=== PATIENT | female | born 1975 | race Caucasian/White ===

== ENCOUNTER 2019-06-17 14:32 | Inpatient (IN) | payer BC, SELFPAY ==
[2019-06-17] VITALS (7 sets, daily range): BP systolic 90–113; BP diastolic 50–58; PULSE 92–122; RESP 18–24; TEMP 37–38.7; O2SAT 91–95; BMI 31.1; BMI 31.6; BMI 31.7
--- NOTE | 2019-06-17 14:55 | ED.DCSUM_ITS ---
- ER Visit Summary Date of Service: 06/17/19 Chief Complaint: Cough and fever History of Present Illness: The patient is a 43 F who presents with cough and fever that is been getting progressively worse over the past week. Patient states she did not take her temperature but she feels like she has a fever. Patient states she has been taking Tylenol Motrin which has been helping. Patient states she is coughing up some sputum but does not know the color of it. Patient also admits to a sore throat. Patient states that she had a recent rapid strep test performed which was negative. Patient admits to nausea but denies any vomiting. Patient admits to a headache but denies any paresthesias or weakness. Patient denies any neck pain or back pain. Physical Examination: Vital signs are stable except for tachycardia of 122 and a mild tachypnea of 20. Patient is afebrile here. Tympanic membranes are clear. Oral mucosa is pink and moist. Oropharynx is erythematous. There are no exudates noted. Neck is supple. Trachea is midline. There is no JVD. Heart was regular rate and rhythm. Lungs show bibasilar rhonchi. There is good respiratory effort. Abdomen is soft. Bowel sounds are normal. There is no tenderness. Extremities are intact. There is no calf tenderness or edema. Cranial nerves II through XII are intact. There are no focal motor or sensory deficits. Test Results: CBC and metabolic profile were within normal limits. Rapid flu and rapid strep were obtained and were negative. PA and lateral chest x-ray shows bilateral lower lobe infiltrates. These are interpreted by the radiologist and reviewed by myself. Emergency Department Course and Treatment: Patient was given IV fluids. Patient was given Tylenol. Patient remained febrile. Patient was started on Levaquin. Case was discussed with the hospitalist. She will be in to evaluate the patient. She requested that a respiratory panel be ordered. This was done. Patient understood and was agreeable with the plan. All questions were answered. Disposition: Admit to hospital Impression: Bilateral lower lobe pneumonia This note was generated with Ee[employer]ria dictation software. It may contain incorrect words, spelling, and punctuation that were not noted in review of the chart prior to signing ED Disposition - Plan for ED Patient: Disposition: Acute Care Hospital [facility] Diagnosis: Community acquired bilateral lower lobe pneumonia Referrals: Anthony Ragland MD [Primary Care Provider] -
[2019-06-17] MEDS: Acetaminophen 500 MG Tablet 1000 MG PO (15:14)
[2019-06-17] MEDS: 0.9% Normal Saline 1,000 ML 1000 ML IV (15:14)
--- NOTE | 2019-06-17 15:28 | RAD_ITS ---
STUDY: X-RAY CHEST REASON FOR EXAM: Female, 43 years old. sob fever and cough TECHNIQUE: PA and lateral views of the chest. COMPARISON: None. FINDINGS: Patchy parenchymal opacities involving the bilateral lower lobes and lingula. There is no demonstrated pleural abnormality. Normal size heart. Normal mediastinum and kirk. Normal visualized pulmonary arteries. Normal visualized aortic arch and descending thoracic aorta. Normal visualized thoracic spine. Normal visualized ribs, clavicles, and shoulders. There is no demonstrated abnormality of the visualized soft tissue structures of the upper abdomen. RAD/Chest PA and Lateral IMPRESSION: Bilateral lower lobe and lingular airspace disease. Electronically Signed: Payam Barrios MD ([place]) at 15:39 EDT , Service support ,
[2019-06-17 15:37] LABS: Basophil# 0.01 X10^3/uL; Basophil% 0.1 % (0-1); Hematocrit 43.4 % (37-47); Lymphocyte % 4.5 % (19-41); Mean Corp Hgb Conc 32.3 g/dL (32-36); Mean Corpuscular Hgb 29.8 pg (27.0-32.0); Mean Corpuscular Volume 92.3 fL (81-99); Mean Platelet Vol. 10.6 fl (6.2-12.0); Monocyte# 0.41 X10^3/uL; Monocyte% 6.1 % (0-10); NRBC Flagged by Analyzer 0 % (0-5); Neutrophil # 5.96 X10^3/uL (2.7-7.7); Neutrophil % 88.7 % (47-70); POSITIVE DIFFERENTIAL YES; POSITIVE MORPHOLOGY YES; Platelet Count 121 K/mm3 (150-450); RBC Distribution Width CV 12.6 % (11.6-14.6); RBC Distribution Width SD 42.7 fl (35.1-43.9); White Blood Count 6.7 K/mm3 (4.4-11.0)
[2019-06-17 15:51] LABS: AST(SGOT) 45 U/L (15-37); Alanine Aminotransfer ALT/SGPT 49 U/L (13-56); Albumin, Serum 3.3 g/dL (3.2-5.0); Alkaline Phosphatase 65 U/L (45-117); Anion Gap 6 (5-15); BUN 9 mg/dL (7-18); BUN/Creat Ratio 10.7 RATIO (10-20); Calcium,Total 8.4 mg/dL (8.5-10.1); Chloride 106 mmol/L (98-107); Creatinine, Serum 0.84 mg/dL (0.55-1.02); Differential Indicated SCAN CRITERIA MET; EST Glomerular Filtration Rate 77 mL/min (>60); Est Glom Filt Rate - Afr Amer 94 mL/min (>60); Estimated Creatinine Clearance 69.96 ml/min; Globulin 3.4 g/dL (2.2-4.2); Glucose 110 mg/dL (74-106); Potassium 4.1 mmol/L (3.5-5.1); Protein, Total 6.7 g/dL (6.4-8.2); Sodium Level 138 mmol/L (136-145)
[2019-06-17 16:19] LABS: Differential Comment SCANNED
--- NOTE | 2019-06-17 17:21 | PCM.HP.STD ---
Problem List (1) Hypothyroidism Status: Chronic (2) Pneumonia Status: Acute History of Present Illness Date of Admission: 06/17/19 Chief Complaint: Cough, fever, chills. The patient is a 43 year old F who presents the emergency room due to cough, fever, chills for 1 week. She also complains of fatigue and general malaise. Cough is productive with yellow/green sputum. She denies significant shortness of breath although reports she has not been doing much. Patient states her and youngest daughter have also been sick recently. Patient states she has had pneumonia in the past. Denies underlying lung disease including COPD and asthma. Patient does state she has a remote smoking history. She denies nausea, vomiting, diarrhea. She reports sore throat with initial onset of symptoms which has since resolved. She has a past medical history of hypothyroidism. 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 Denies: Head Aches, Sinus Congestion, Sinus Drainage Cardiovascular: Denies: Chest Pain, Edema, Light Headedness, Palpitations, Syncope Respiratory: Reports: Cough, Sputum production. Denies: Shortness of Breath, Wheezing Gastrointestinal: Denies: Abdominal Pain, Nausea, Vomiting Genitourinary: Denies: Dysuria Musculoskeletal: Denies: Joint Pain, Joint Tenderness Skin: Denies: Rash, Wounds Neurological: Denies: Numbness, Tingling, Focal weakness Psychiatric: Denies: Anxiety, Depression, Homicidal Ideations, Suicidal Ideations Hematologic/ Lymphatic: Denies: Easy Bruising, Easy Bleeding VTE Information - Inpt Only VTE Present on Admission: No VTE Mechan Device Prophylaxis: SCD's VTE Pharm Prophylaxis ordered?: No Reason prophylaxis not ordered:: Treatment Not Indicated Patient Problems: Active and Suspected Problems Pneumonia (Acute) - Physical Exam Vitals/I&O's: Vital Signs Temp Pulse Resp BP Pulse Ox 101.6 F H 109 H 24 H 106/58 L 92 06/17/19 17:00 06/17/19 17:00 06/17/19 17:00 06/17/19 17:00 06/17/19 17:00 Oxygen Delivery Method Room Air Weight: 176 lb Body Mass Index (BMI) 31.1 Intake and Output for Last 24 Hours 06/15/19 06/16/19 06/17/19 23:59 23:59 23:59 Intake Total 1000 / 1000 Balance 1000 / 1000 General: Alert, Oriented x3, Cooperative, - - Ill-appearing HEENT: Atraumatic, PERRLA, EOMI, Normocephalic Oral: Dry Mucosa Neck: Supple, No JVD, Negative Carotid Bruits Lungs: Diminished, Rhonchi Cardiovascular: Regular Rhythm, Normal S1, Normal S2, No murmurs, Tachycardic Abdomen: Bowel Sounds Present, Soft, Non Tender, Non-Distended Extremities: No clubbing, No cyanosis, No edema, Capillary Refill Less than 3 Seconds Skin: No rashes, No breakdown Musculoskeletal: No Tenderness to Palpation of Joints or Extremities Neurological: Cranial nerves II-XII grossly intact, Neuro grossly intact Psych/Mental Status: Normal Affect, Appropriate Microbiology Past 72 Hours 06/17/19 15:10 Mucosa - Nose Influenza Types A,B Direct FA (PORTER) - Final 06/17/19 15:25 Mucosa - Throat Group A Streptococcus Rapid Screen - Preliminary Laboratory Results 06/17/19 15:10: WBC 6.7, RBC 4.70, Hgb 14.0, Hct 43.4, MCV 92.3, MCH 29.8, MCHC 32.3, RDW Std Deviation 42.7, RDW Coeff of Esequiel 12.6, Plt Count 121 L, MPV 10.6, Immature Gran % (Auto) 0.600, Neut % (Auto) 88.7 H, Lymph % (Auto) 4.5 L, [place] % (Auto) 6.1, Eos % (Auto) 0.0, Baso % (Auto) 0.1, Absolute Neuts (auto) 6.0, Absolute Lymphs (auto) 0.30 L, Nucleated RBC % 0, Differential Comment SCANNED 06/17/19 15:10: Sodium 138, Potassium 4.1, Chloride 106, Carbon Dioxide 26.0, Anion Gap 6, BUN 9, Creatinine 0.84, Estim Creat Clear Calc 69.96, Est GFR (MDRD) Af Amer 94, Est GFR (MDRD) Non-Af 77, BUN/Creatinine Ratio 10.7, Glucose 110 H, Calcium 8.4 L, Total Bilirubin 1.00, AST 45 H, ALT 49, Alkaline Phosphatase 65, Total Protein 6.7, Albumin 3.3, Globulin 3.4, Albumin/Globulin Ratio 1.0 Current Medications Levofloxacin (Levaquin Iv) 750 mg in 150 mls @ 100 mls/hr IV X1 ONE Stop: 06/17/19 18:37 Assessment/Plan All Active Problems Pneumonia (Acute) 1. Bilateral community-acquired pneumonia, possible [id number] symptoms began with sore throat, progressive cough with fever and chills. Sick contacts at home. Rapid influenza and strep negative. Check respiratory panel. Chest x-ray with bilateral pneumonia. Check sputum culture. Check urine for strep and Legionella. Albuterol and DuoNeb aerosols. IV Levaquin initiated in ER, continue. Check lactic acid and blood cultures. If respiratory panel negative, consider coronavirus testing. 2. Hypothyroidism-continue Synthroid. DVT prophylaxis-SCDs This patient was seen by LANE Flores under the supervision of Dr. Fofana.
--- NOTE | 2019-06-17 17:22 | NURSING ---
DR COOPER FOR DR YOON
--- NOTE | 2019-06-17 17:38 | NURSING ---
MED SURG SEMENTI BILATERAL PNEUMONIA
[2019-06-17] MEDS: levoFLOXacin IV 750 MG/150 ML BAG 100 MG IV (17:47)
[2019-06-17] MEDS: Acetaminophen 325 MG Tablet 650 MG PO (19:39)
[2019-06-17] MEDS: Ondansetron 4 MG/2 ML Vial IV (19:39)
[2019-06-17] MEDS: 0.9% Normal Saline 1,000 ML 999 ML IV (20:29)
--- NOTE | 2019-06-17 21:07 | NURSING ---
Lab called. Resp panel positive for human metapnemo virus. Patient should be in contact and droplet precautions. [place], infection property maintenance technician notified Dr. Ramirez.
[2019-06-17] MEDS: Ibuprofen 400 MG Tablet PO (21:55)
[2019-06-17] MEDS: guaiFENesin 1,200 MG Tablet 1200 MG PO (21:56)
[2019-06-17 22:06] LABS: Reflex Lactate? Y
[2019-06-17] MEDS: 0.9% Normal Saline 1,000 ML 150 ML IV (22:25)
[2019-06-18] VITALS (9 sets, daily range): BP systolic 87–116; BP diastolic 48–67; PULSE 64–83; RESP 16–20; TEMP 36.3–36.7; O2SAT 95–97
[2019-06-18 00:01] LABS: Lactic Acid 2.5 mmol/L (0.4-1.9)
[2019-06-18] MEDS: 0.9% Normal Saline 1,000 ML 150 ML IV ×2 (01:43→05:33)
[2019-06-18] MEDS: Ondansetron 4 MG/2 ML Vial IV ×2 (03:36→11:30)
[2019-06-18] MEDS: Levothyroxine 75 MCG Tablet PO (05:46)
[2019-06-18] MEDS: 0.9% Saline Lock 10 ML Syringe IV ×4 (05:47→17:28)
[2019-06-18] MEDS: Ibuprofen 400 MG Tablet PO ×2 (05:51→10:27)
[2019-06-18 06:01] LABS: Absolute Lymphocyte Count 1.04 X10^3/uL (0.83-4.51); Absolute Neutrophil Count 5.8 X10^3/uL (2.0-7.7); Basophil# 0.02 X10^3/uL; Basophil% 0.3 % (0-1); Eosinophil# 0.01 X10^3/uL; Eosinophils% 0.1 % (0-5); Hematocrit 35.6 % (37-47); Hemoglobin 11.6 g/dL (12.0-15.0); Lymphocyte # 1.04 X10^3/ul (4.0); Lymphocyte % 14.1 % (19-41); Mean Corp Hgb Conc 32.6 g/dL (32-36); Mean Corpuscular Hgb 29.7 pg (27.0-32.0); Mean Corpuscular Volume 91.3 fL (81-99); Mean Platelet Vol. 10.2 fl (6.2-12.0); Monocyte# 0.44 X10^3/uL; NRBC Flagged by Analyzer 0 % (0-5); Neutrophil # 5.79 X10^3/uL (2.7-7.7); Neutrophil % 78.8 % (47-70); POSITIVE MORPHOLOGY YES; Platelet Count 102 K/mm3 (150-450); RBC Distribution Width CV 13.2 % (11.6-14.6); RBC Distribution Width SD 43.4 fl (35.1-43.9); White Blood Count 7.4 K/mm3 (4.4-11.0)
[2019-06-18 06:04] LABS: Differential Indicated SCAN CRITERIA MET
[2019-06-18 06:24] LABS: Anion Gap 6 (5-15); BUN 11 mg/dL (7-18); Calcium,Total 7.5 mg/dL (8.5-10.1); Chloride 111 mmol/L (98-107); Creatinine, Serum 0.65 mg/dL (0.55-1.02); EST Glomerular Filtration Rate 105 mL/min (>60); Est Glom Filt Rate - Afr Amer 127 mL/min (>60); Estimated Creatinine Clearance 90.41 ml/min; Glucose 102 mg/dL (74-106); Potassium 3.9 mmol/L (3.5-5.1); Sodium Level 140 mmol/L (136-145)
[2019-06-18 06:27] LABS: Lactic Acid 1.9 mmol/L (0.4-1.9)
[2019-06-18 06:31] LABS: Platelet Estimate MOD DEC (ADEQ)
[2019-06-18] MEDS: guaiFENesin 1,200 MG Tablet 1200 MG PO ×2 (10:13→20:42)
[2019-06-18] MEDS: levoFLOXacin IV 750 MG/150 ML BAG 100 MG IV (10:13)
--- NOTE | 2019-06-18 10:25 | PN_ITS ---
<Zoya Rizo - Last Filed: 06/18/19 10:37> Patient Problems: Active and Suspected Problems Pneumonia (Acute) Community acquired bilateral lower lobe pneumonia (Acute) Subjective: Patient seen and examined. Feeling improved today. Fever resolved. Denies significant shortness of breath. Complains of generalized weakness and fatigue. - Physical Exam Vitals/I&O's: Vital Signs Temp Pulse Resp BP Pulse Ox 98.0 F 75 16 100/58 L 95 06/18/19 08:30 06/18/19 08:30 06/18/19 08:30 06/18/19 08:30 06/18/19 08:30 Oxygen Delivery Method Room Air Weight: 178 lb 12.718 oz Body Mass Index (BMI) 31.6 Intake and Output for Last 24 Hours 06/16/19 06/17/19 06/18/19 23:59 23:59 23:59 Intake Total 2650 / 2850 2870.83 / 2870.83 Balance 2650 / 2850 2870.83 / 2870.83 General: Alert, Oriented x3, Cooperative HEENT: Atraumatic, PERRLA, EOMI, Normocephalic Neck: Supple, No JVD, Negative Carotid Bruits Lungs: Normal air movement, - - Crackles bilateral bases Cardiovascular: Regular rate, Regular Rhythm, Normal S1, Normal S2, No murmurs Abdomen: Bowel Sounds Present, Soft, Non Tender, Non-Distended Extremities: No clubbing, No cyanosis, No edema, Capillary Refill Less than 3 Seconds Skin: No rashes, No breakdown Musculoskeletal: No Tenderness to Palpation of Joints or Extremities Neurological: Cranial nerves II-XII grossly intact, Neuro grossly intact Psych/Mental Status: Normal Affect, Appropriate Microbiology Past 72 Hours 06/17/19 15:10 Mucosa - Nose Respiratory Panel (PCR) - Final [facility] [place] 06/17/19 18:15 Urine, Clean Catch Streptococcus pneumoniae Antigen (M - Final Streptococcus pneumonia Ag 06/17/19 18:15 Urine, Clean Catch Legionella Antigen - Final 06/17/19 15:10 Mucosa - Nose Influenza Types A,B Direct FA (PORTER) - Final 06/17/19 15:25 Mucosa - Throat Group A Streptococcus Rapid Screen - Preliminary Laboratory Results 06/17/19 15:10: WBC 6.7, RBC 4.70, Hgb 14.0, Hct 43.4, MCV 92.3, MCH 29.8, MCHC 32.3, RDW Std Deviation 42.7, RDW Coeff of Esequiel 12.6, Plt Count 121 L, MPV 10.6, Immature Gran % (Auto) 0.600, Neut % (Auto) 88.7 H, Lymph % (Auto) 4.5 L, [place] % (Auto) 6.1, Eos % (Auto) 0.0, Baso % (Auto) 0.1, Absolute Neuts (auto) 6.0, Absolute Lymphs (auto) 0.30 L, Nucleated RBC % 0, Differential Comment SCANNED 06/17/19 15:10: Sodium 138, Potassium 4.1, Chloride 106, Carbon Dioxide 26.0, Anion Gap 6, BUN 9, Creatinine 0.84, Estim Creat Clear Calc 69.96, Est GFR (MDRD) Af Amer 94, Est GFR (MDRD) Non-Af 77, BUN/Creatinine Ratio 10.7, Glucose 110 H, Calcium 8.4 L, Total Bilirubin 1.00, AST 45 H, ALT 49, Alkaline Phosphatase 65, Total Protein 6.7, Albumin 3.3, Globulin 3.4, Albumin/Globulin Ratio 1.0 06/17/19 17:50: Lactic Acid 3.0 H* 06/17/19 23:10: Lactic Acid 2.5 H* 06/18/19 05:44: WBC 7.4, RBC 3.90 L, Hgb 11.6 L, Hct 35.6 L, MCV 91.3, MCH 29.7, MCHC 32.6, RDW Std Deviation 43.4, RDW Coeff of Esequiel 13.2, Plt Count 102 L, MPV 10.2, Immature Gran % (Auto) 0.700, Neut % (Auto) 78.8 H, Lymph % (Auto) 14.1 L, [place] % (Auto) 6.0, Eos % (Auto) 0.1, Baso % (Auto) 0.3, Absolute Neuts (auto) 5.8, Absolute Lymphs (auto) 1.04, Nucleated RBC % 0, Platelet Estimate MOD DEC 06/18/19 05:44: Sodium 140, Potassium 3.9, Chloride 111 H, Carbon Dioxide 23.0, Anion Gap 6, BUN 11, Creatinine 0.65, Estim Creat Clear Calc 90.41, Est GFR (MDRD) Af Amer 127, Est GFR (MDRD) Non-Af 105, BUN/Creatinine Ratio 17.0, Glucose 102, Calcium 7.5 L 06/18/19 05:44: Lactic Acid 1.9 Current Medications Acetaminophen (Tylenol) 650 mg PO Q6H PRN PRN PRN Reason: Pain Score 1-10/Temp > 100.7 F Last Admin: 06/17/19 19:39 Dose: 650 mg Documented by: Albuterol Sulfate (Ventolin Aerosols) 2.5 mg INHALATION Q2H PRN PRN PRN Reason: Shortness of Breath/Wheezing Guaifenesin (Mucinex) 1,200 mg PO BID [facility] Last Admin: 06/18/19 10:13 Dose: 1,200 mg Documented by: Levofloxacin (Levaquin Iv) 750 mg in 150 mls @ 100 mls/hr IV Q24 [facility] Stop: 06/25/19 10:01 Last Admin: 06/18/19 10:13 Dose: 100 mls/hr Documented by: Sodium Chloride () 250 mls @ 15 mls/hr IV .[id number] PRN PRN Reason: Saline Flush Sodium Chloride () 250 mls @ 15 mls/hr IV .[id number] PRN PRN Reason: Additional IVPB Infusion Ibuprofen (Motrin) 400 mg PO Q4H PRN PRN PRN Reason: Pain Score 1-10/Temp > 100.7 F Last Admin: 06/18/19 05:51 Dose: 400 mg Documented by: Levothyroxine Sodium (Synthroid) 75 mcg PO DAILY@0600 [facility] Last Admin: 06/18/19 05:46 Dose: 75 mcg Documented by: Nutritional Formula (Lactose Free) (Ensure Enlive) 120 ml PO 4X/DAY [facility] Last Admin: 06/18/19 10:13 Dose: Not Given Documented by: Ondansetron HCl (Zofran) 4 mg IV Q8H PRN PRN PRN Reason: NAUSEA/VOMITING Last Admin: 06/18/19 03:36 Dose: 4 mg Documented by: Oxycodone HCl (Oxyir) 5 mg PO Q4H PRN PRN PRN Reason: Pain Score 4-10/10 Sodium Chloride () 10 - 40 ml IV UD PRN PRN Reason: SALINE FLUSH Last Admin: 06/18/19 05:47 Dose: 10 ml Documented by: Medical Necessity - Tobacco Use Smoking Status: Former smoker Tobacco Use: Cigarettes Assessment/Plan All Active Problems Pneumonia (Acute) Community acquired bilateral lower lobe pneumonia (Acute) 1. Severe Sepsis secondary to Bilateral strep pneumonia and human metapneumovirus- Chest x-ray with bilateral pneumonia. Streptococcus pneumonia antigen positive. Check sputum culture. Albuterol and DuoNeb aerosols. Continue IV levaquin. Tachycardia, fever on admission. Lactic acid following admission 3.0. Patient received IV fluids per protocol. Blood cultures pending. 2. Hypothyroidism-continue Synthroid. DVT prophylaxis-SCDs This patient was seen by LANE Flores under the supervision of Dr. Flowers. <Ace Flowers - Last Filed: 06/18/19 12:06> Subjective: Patient does not have respiratory distress. Patient came to ER as she was feeling very weak, shortness of breath on exertion but no obvious symptoms of cough, sputum, headache or other URI symptoms Fever has resolved. It was 101.6 Fahrenheit yesterday - Physical Exam Vitals/I&O's: Vital Signs Temp Pulse Resp BP Pulse Ox 98.0 F 64 16 100/58 L 95 06/18/19 08:30 06/18/19 10:15 06/18/19 08:30 06/18/19 08:30 06/18/19 08:30 Oxygen Delivery Method Room Air Weight: 178 lb 12.718 oz Body Mass Index (BMI) 31.6 Intake and Output for Last 24 Hours 06/16/19 06/17/19 06/18/19 23:59 23:59 23:59 Intake Total 2650 / 2850 3020.83 / 3020.83 Balance 2650 / 2850 3020.83 / 3020.83 General: Alert, Oriented x3, Cooperative HEENT: Atraumatic, PERRLA, EOMI, Normocephalic Neck: Supple, No JVD, Negative Carotid Bruits Lungs: Diminished - Air entry diminished bilaterally, Rales - Bibasilar coarse crackle, - Cardiovascular: Regular rate, Regular Rhythm, Normal S1, Normal S2, No murmurs Abdomen: Bowel Sounds Present, Soft, Non Tender, Non-Distended Extremities: No edema, Capillary Refill Less than 3 Seconds Skin: No rashes, No breakdown Musculoskeletal: No Tenderness to Palpation of Joints or Extremities, Arthritic Changes Neurological: Cranial nerves II-XII grossly intact, Deep Tendon Reflexes 2+/4 and Symmetrical, Neuro grossly intact Psych/Mental Status: Normal Affect, Appropriate Microbiology Past 72 Hours 06/17/19 15:10 Mucosa - Nose Respiratory Panel (PCR) - Final [facility] [place] 06/17/19 18:15 Urine, Clean Catch Streptococcus pneumoniae Antigen (M - Final Streptococcus pneumonia Ag 06/17/19 18:15 Urine, Clean Catch Legionella Antigen - Final 06/17/19 15:10 Mucosa - Nose Influenza Types A,B Direct FA (PORTER) - Final 06/17/19 15:25 Mucosa - Throat Group A Streptococcus Rapid Screen - Preliminary Laboratory Results 06/17/19 15:10: WBC 6.7, RBC 4.70, Hgb 14.0, Hct 43.4, MCV 92.3, MCH 29.8, MCHC 32.3, RDW Std Deviation 42.7, RDW Coeff of Esequiel 12.6, Plt Count 121 L, MPV 10.6, Immature Gran % (Auto) 0.600, Neut % (Auto) 88.7 H, Lymph % (Auto) 4.5 L, [place] % (Auto) 6.1, Eos % (Auto) 0.0, Baso % (Auto) 0.1, Absolute Neuts (auto) 6.0, Absolute Lymphs (auto) 0.30 L, Nucleated RBC % 0, Differential Comment SCANNED 06/17/19 15:10: Sodium 138, Potassium 4.1, Chloride 106, Carbon Dioxide 26.0, Anion Gap 6, BUN 9, Creatinine 0.84, Estim Creat Clear Calc 69.96, Est GFR (MDRD) Af Amer 94, Est GFR (MDRD) Non-Af 77, BUN/Creatinine Ratio 10.7, Glucose 110 H, Calcium 8.4 L, Total Bilirubin 1.00, AST 45 H, ALT 49, Alkaline Phosphatase 65, Total Protein 6.7, Albumin 3.3, Globulin 3.4, Albumin/Globulin Ratio 1.0 06/17/19 17:50: Lactic Acid 3.0 H* 06/17/19 23:10: Lactic Acid 2.5 H* 06/18/19 05:44: WBC 7.4, RBC 3.90 L, Hgb 11.6 L, Hct 35.6 L, MCV 91.3, MCH 29.7, MCHC 32.6, RDW Std Deviation 43.4, RDW Coeff of Esequiel 13.2, Plt Count 102 L, MPV 10.2, Immature Gran % (Auto) 0.700, Neut % (Auto) 78.8 H, Lymph % (Auto) 14.1 L, [place] % (Auto) 6.0, Eos % (Auto) 0.1, Baso % (Auto) 0.3, Absolute Neuts (auto) 5.8, Absolute Lymphs (auto) 1.04, Nucleated RBC % 0, Platelet Estimate MOD DEC 06/18/19 05:44: Sodium 140, Potassium 3.9, Chloride 111 H, Carbon Dioxide 23.0, Anion Gap 6, BUN 11, Creatinine 0.65, Estim Creat Clear Calc 90.41, Est GFR (MDRD) Af Amer 127, Est GFR (MDRD) Non-Af 105, BUN/Creatinine Ratio 17.0, Glucose 102, Calcium 7.5 L 06/18/19 05:44: Lactic Acid 1.9 Current Medications Acetaminophen (Tylenol) 650 mg PO Q6H PRN PRN PRN Reason: Pain Score 1-10/Temp > 100.7 F Last Admin: 06/17/19 19:39 Dose: 650 mg Documented by: Albuterol Sulfate (Ventolin Aerosols) 2.5 mg INHALATION Q2H PRN PRN PRN Reason: Shortness of Breath/Wheezing Guaifenesin (Mucinex) 1,200 mg PO BID [facility] Last Admin: 06/18/19 10:13 Dose: 1,200 mg Documented by: Levofloxacin (Levaquin Iv) 750 mg in 150 mls @ 100 mls/hr IV Q24 [facility] Stop: 06/25/19 10:01 Last Infusion: 06/18/19 11:43 Dose: Infused Documented by: Sodium Chloride () 250 mls @ 15 mls/hr IV .[id number] PRN PRN Reason: Saline Flush Sodium Chloride () 250 mls @ 15 mls/hr IV .[id number] PRN PRN Reason: Additional IVPB Infusion Sodium Chloride () 1,000 mls @ 100 mls/hr IV .Q10H [facility] Stop: 06/18/19 20:39 Last Infusion: 06/18/19 11:43 Dose: 100 mls/hr Documented by: Ibuprofen (Motrin) 400 mg PO Q4H PRN PRN PRN Reason: Pain Score 1-10/Temp > 100.7 F Last Admin: 06/18/19 10:27 Dose: 400 mg Documented by: Levothyroxine Sodium (Synthroid) 75 mcg PO DAILY@0600 [facility] Last Admin: 06/18/19 05:46 Dose: 75 mcg Documented by: Nutritional Formula (Lactose Free) (Ensure Enlive) 120 ml PO 4X/DAY [facility] Last Admin: 06/18/19 10:13 Dose: Not Given Documented by: Ondansetron HCl (Zofran) 4 mg IV Q8H PRN PRN PRN Reason: NAUSEA/VOMITING Last Admin: 06/18/19 11:30 Dose: 4 mg Documented by: Oxycodone HCl (Oxyir) 5 mg PO Q4H PRN PRN PRN Reason: Pain Score 4-10/10 Sodium Chloride () 10 - 40 ml IV UD PRN PRN Reason: SALINE FLUSH Last Admin: 06/18/19 11:30 Dose: 10 ml Documented by: Assessment/Plan This patient was seen in conjunction with Zoya PERRY. I have independently interviewed and examined the patient and reviewed pertinent history, examination findings, laboratory and plan of management. I have reviewed the note and agree with the documented findings with the few additional points. In brief, patient is admitted for generalized malaise, fever, shortness of breath on exertion, tachycardia, tachypnea, mild hypotension and lactic acidosis suggestive of severe sepsis secondary to bilateral lower lobes strep pneumonia and human metapneumovirus. The blood pressure is stabilized. Patient is responding well on antibiotic IV Levaquin. Total positive fluid balance 5.6 L. Can discontinue IV fluid after 1 L running. Hypothyroidism on Synthroid I have discussed my assessment with Zoya PERRY and orders have been reviewed. Total time of the visit including total time spent in counseling or coordination of care, (more than 50% of the total time, spent in obtaining medical information from nurses and other ancillary care providers), clinical update to the family members present in the room, review of labs, cultures and imaging is 30 minutes Clinical Impression(s) from Imaging Studies Chest X-Ray 06/17/19 15:28 IMPRESSION: Bilateral lower lobe and lingular airspace disease. Microbiology Past 72 Hours 06/17/19 15:10 Mucosa - Nose Respiratory Panel (PCR) - Final [facility] [place] 06/17/19 18:15 Urine, Clean Catch Streptococcus pneumoniae Antigen (M - Final Streptococcus pneumonia Ag 06/17/19 18:15 Urine, Clean Catch Legionella Antigen - Final 06/17/19 15:10 Mucosa - Nose Influenza Types A,B Direct FA (PORTER) - Final 06/17/19 15:25 Mucosa - Throat Group A Streptococcus Rapid Screen - Preliminary Inpatient E&M: [id number] Subs Hosp L3
[2019-06-18] MEDS: 0.9% Normal Saline 1,000 ML 100 ML IV (11:30)
[2019-06-18] MEDS: oxyCODONE 5 MG Tablet PO ×2 (14:15→20:42)
[2019-06-18] MEDS: proMETHazine 25 MG/ML Syringe 12.5 MG IV (17:28)
[2019-06-19] MEDS: Ibuprofen 400 MG Tablet PO ×2 (00:39→09:47)
[2019-06-19] MEDS: 0.9% Saline Lock 10 ML Syringe IV (00:39)
[2019-06-19 02:08] VITALS: BP 102/52; PULSE 73; RESP 16; TEMP 36.8; O2SAT 94
[2019-06-19] MEDS: oxyCODONE 5 MG Tablet PO (02:10)
[2019-06-19] MEDS: Acetaminophen 325 MG Tablet 650 MG PO (02:11)
[2019-06-19 05:36] LABS: Absolute Lymphocyte Count 1.19 X10^3/uL (0.83-4.51); Absolute Neutrophil Count 4.9 X10^3/uL (2.0-7.7); Basophil# 0.01 X10^3/uL; Basophil% 0.2 % (0-1); Eosinophil# 0.04 X10^3/uL; Eosinophils% 0.6 % (0-5); Hematocrit 33.3 % (37-47); Hemoglobin 10.7 g/dL (12.0-15.0); Lymphocyte # 1.19 X10^3/ul (4.0); Lymphocyte % 18.2 % (19-41); Mean Corp Hgb Conc 32.1 g/dL (32-36); Mean Corpuscular Hgb 29.6 pg (27.0-32.0); Mean Platelet Vol. 10.9 fl (6.2-12.0); Monocyte# 0.33 X10^3/uL; NRBC Flagged by Analyzer 0 % (0-5); Neutrophil # 4.93 X10^3/uL (2.7-7.7); Neutrophil % 75.4 % (47-70); POSITIVE MORPHOLOGY YES; Platelet Count 113 K/mm3 (150-450); RBC Distribution Width CV 13.2 % (11.6-14.6); RBC Distribution Width SD 44.5 fl (35.1-43.9); Red Blood Count 3.62 M/mm3 (4.2-5.4); White Blood Count 6.5 K/mm3 (4.4-11.0)
[2019-06-19 05:52] LABS: Differential Indicated SCAN CRITERIA MET
[2019-06-19 05:59] LABS: Anion Gap 5 (5-15); BUN 11 mg/dL (7-18); BUN/Creat Ratio 16.8 RATIO (10-20); Chloride 111 mmol/L (98-107); Creatinine, Serum 0.65 mg/dL (0.55-1.02); EST Glomerular Filtration Rate 104 mL/min (>60); Est Glom Filt Rate - Afr Amer 126 mL/min (>60); Estimated Creatinine Clearance 90.41 ml/min; Glucose 107 mg/dL (74-106); Potassium 3.8 mmol/L (3.5-5.1); Sodium Level 141 mmol/L (136-145)
[2019-06-19 06:06] LABS: Differential Comment SCANNED
[2019-06-19] MEDS: Levothyroxine 75 MCG Tablet PO (06:21)
[2019-06-19 09:40] VITALS: BP 125/55; PULSE 61; RESP 16; TEMP 36.6; O2SAT 92
[2019-06-19] MEDS: guaiFENesin 1,200 MG Tablet 1200 MG PO (09:47)
[2019-06-19] MEDS: levoFLOXacin IV 750 MG/150 ML BAG 100 MG IV (09:48)
--- NOTE | 2019-06-19 10:53 | CASEMGMT ---
ERIN CM Chart Review: Patient admitted for bilateral pnemonia. Patient has hypothyroidism and in on synthroid at home. Patient has not been on oxygen while admitted. Patient has PCP Dr. Ragland. Patient lives with and daughter. Patient up ad inga in room. No needs identified at this time. CM to remain available if discharge needs arise. Disposition Plan: Patient to discharge home with family support and follow-up plans in place. No needs identified at this time.
[2019-06-19] MEDS: Acetaminophen/Butalbital/Caffe 1 Tablet 2 TABLET PO (11:04)
--- NOTE | 2019-06-19 11:32 | PCM.DC ---
- Discharge Diagnoses Current Active Problems: Current Active and Chronic Problems Hypothyroidism (Chronic) Pneumonia (Acute) Community acquired bilateral lower lobe pneumonia (Acute) You will use the following diet at home:: No restrictions Discharge Activity: Return to Normal Activity Call your doctor if you observe: Shortness of breath, Dizziness, Fainting spells, Chest pain Additional Instructions: You may take Excedrin at home for headache. Allergies/Adverse Reactions: Allergies No Known Allergies Allergy (Verified 06/17/19 14:36) Medications to take at Discharge Levothyroxine [Synthroid] 75 mcg PO DAILY 07/28/16 levoFLOXacin tablet [Levaquin tablet] 750 mg PO DAILY #5 tab 06/19/19 The following prescriptions were given: levoFLOXacin tablet [Levaquin tablet] 750 mg PO DAILY #5 tab Transmission Status: Pending to [facility] Primary Care Physician: Anthony Ragland MD [Primary Care Provider] - Please follow up with your Primary Care Physician in: 1 Week Test Results: Test results from this visit will be discussed in further detail at your follow-up appointment, if applicable. Proposed Discharge Date: 06/19/19
--- NOTE | 2019-06-19 12:46 | DS.PCM_ITS ---
<Zoya Rizo - Last Filed: 06/19/19 12:50> Discharge Date and Diagnosis Date of Admission: 06/17/19 Date of Discharge: 06/19/19 - Primary Discharge Diagnosis 1. Severe Sepsis secondary to Bilateral strep pneumonia and human metapneumovirus 2. Hypothyroidism - Secondary Discharge Diagnosis Chronic Problems Hypothyroidism (Chronic) Hospital Course and Treatment Imaging Results: Diagnostic Data Chest X-Ray 06/17/19 15:28 IMPRESSION: Bilateral lower lobe and lingular airspace disease. Electronically Signed: Payam Barrios MD (Brooks) at 15:39 EDT , Service support , Operations: None Procedures: None Summary of Care Provided: The patient is a 43 year old F admitted 06/17/2019 due to cough with fever and chills. 1. Severe Sepsis secondary to Bilateral strep pneumonia and human metapneumovirus- Chest x-ray with bilateral pneumonia. Streptococcus pneumonia antigen positive. IV Levaquin during admission with transition to oral Levaquin to complete 7-day course of antibiotics. Tachycardia, fever on admission. Lactic acid following admission 3.0. Patient received IV fluids per protocol. Blood cultures show no growth thus far. Oxygen has remained stable on room air. Follow-up with primary care physician in 1 week. 2. Hypothyroidism-continue Synthroid. General: Alert, Oriented x3, Cooperative HEENT: Atraumatic, PERRLA, EOMI, Normocephalic Neck: Supple, No JVD, Negative Carotid Bruits Lungs: Normal air movement, faint crackles bilateral bases-significantly improved Cardiovascular: Regular rate, Regular Rhythm, Normal S1, Normal S2, No murmurs Abdomen: Bowel Sounds Present, Soft, Non Tender, Non-Distended Extremities: No clubbing, No cyanosis, No edema, Capillary Refill Less than 3 Seconds Skin: No rashes, No breakdown Musculoskeletal: No Tenderness to Palpation of Joints or Extremities Neurological: Cranial nerves II-XII grossly intact, Neuro grossly intact Psych/Mental Status: Normal Affect, Appropriate Patient seen and examined prior to discharge. Physical assessment as noted above. Patient is stable for discharge with follow up recommendations as noted above. This patient was seen by [facility] under the supervision of Dr. Bernard. - Physical Exam Vitals/I&O's: Vital Signs Temp Pulse Resp BP Pulse Ox 97.8 F 61 16 125/55 H 92 06/19/19 09:40 06/19/19 09:40 06/19/19 09:40 06/19/19 09:40 06/19/19 09:40 Oxygen Delivery Method Room Air Weight: 178 lb 12.718 oz Body Mass Index (BMI) 31.6 Intake and Output for Last 24 Hours 06/17/19 06/18/19 06/19/19 23:59 23:59 23:59 Intake Total 2650 / 2850 4700.83 / 5060.83 850 / 850 Output Total 300 / 1100 1300 / 1300 Balance 2650 / 2850 4400.83 / 3960.83 -450 / -450 Microbiology Past 72 Hours 06/17/19 15:25 Mucosa - Throat Group A Streptococcus Rapid Screen - Preliminary 06/17/19 15:10 Mucosa - Nose Respiratory Panel (PCR) - Final Human [place] 06/17/19 18:15 Urine, Clean Catch Streptococcus pneumoniae Antigen (M - Final Streptococcus pneumonia Ag 06/17/19 18:15 Urine, Clean Catch Legionella Antigen - Final 06/17/19 15:10 Mucosa - Nose Influenza Types A,B Direct FA (PORTER) - Final Laboratory Results 06/19/19 04:56: WBC 6.5, RBC 3.62 L, Hgb 10.7 L, Hct 33.3 L, MCV 92.0, MCH 29.6, MCHC 32.1, RDW Std Deviation 44.5 H, RDW Coeff of Esequiel 13.2, Plt Count 113 L, MPV 10.9, Immature Gran % (Auto) 0.600, Neut % (Auto) 75.4 H, Lymph % (Auto) 18.2 L, [place] % (Auto) 5.0, Eos % (Auto) 0.6, Baso % (Auto) 0.2, Absolute Neuts (auto) 4.9, Absolute Lymphs (auto) 1.19, Nucleated RBC % 0, Differential Comment SCANNED 06/19/19 04:56: Sodium 141, Potassium 3.8, Chloride 111 H, Carbon Dioxide 25.0, Anion Gap 5, BUN 11, Creatinine 0.65, Estim Creat Clear Calc 90.41, Est GFR (MDRD) Af Amer 126, Est GFR (MDRD) Non-Af 104, BUN/Creatinine Ratio 16.8, Glucose 107 H, Calcium 8.0 L Discharge Diet: No Restrictions Discharge Activity: Return to Normal Activity Call your doctor if you observe: Shortness of breath, Dizziness, Fainting spells, Chest pain Home Medications: Medications to take at Discharge Levothyroxine [Synthroid] 75 mcg PO DAILY 07/28/16 levoFLOXacin tablet [Levaquin tablet] 750 mg PO DAILY #5 tab 06/19/19 Following Prescrptions Were Given to Patient: levoFLOXacin tablet [Levaquin tablet] 750 mg PO DAILY #5 tab Transmission Status: Received by [facility] Primary Care Physician: Anthony Ragland MD [Primary Care Provider] - Please follow up with your Primary Care Physician in: 1 Week Disposition: Home Minutes spent on discharge:: 35 Patient Condition:: Stable Medical Necessity - Tobacco Use Smoking Status: Former smoker Tobacco Use: Cigarettes Meaningful Use Info Meaningful Use Diagnoses (Choose all that apply): None applicable <Marco AntonioCharlie E - Last Filed: 06/19/19 13:22> Discharge Date and Diagnosis - Secondary Discharge Diagnosis Chronic Problems Hypothyroidism (Chronic) Hospital Course and Treatment Summary of Care Provided: Hospitalist note: Discharge summary above reviewed and I concur with above discharge and treatment plan. Patient was admitted because of cough and fever and she was found to have bilateral lower lobe and lingular infiltrate consistent with acute bilateral community-acquired pneumonia with severe sepsis. Patient was treated with IV Levaquin. Respiratory panel for viruses came back positive for human metapneumovirus. Streptococcal antigen was positive. Blood culture showed no growth up to the time of discharge. Her routine blood work was unremarkable, no leukocytosis. Her lactic acid was 3 at admission and IV fluid therapy and IV antibiotics, it came down to normal. With IV antibiotic therapy, patient symptoms improved and she remained afebrile. Today, she did very well and she has no more complaints except mild cough with minimal sputum. She has been afebrile. Patient discharged home in a stable medical condition, discharged on Levaquin to complete 1 week of treatment. Recommended follow-up with PCP in 1 week. - Physical Exam General: Alert, Oriented x3, Cooperative, No apparent distress. HEENT: Atraumatic, PERRLA, EOMI. Neck: Supple, No JVD, Negative Carotid Bruits, Trachea Midline, Thyroid Normal. Lungs: Decreased breath sounds at the bases, faint bilateral basal crackles,, No rhonchi, No wheeze. Cardiovascular: Regular rate, Regular Rhythm, Normal S1, Normal S2, PMI Normal. Abdomen: Bowel Sounds Present, Soft, Non Tender, Non-Distended, No Hepato- splenomegaly. Extremities: No clubbing, No cyanosis, No edema Skin: No rashes, No breakdown Neurological: Cranial nerves are intact, neuro grossly intact Vital Signs are stable. This note was generated with [employer] dictation software. It may contain incorrect words, spelling, and punctuation that were not noted in checking the note before signing. - Physical Exam Vitals/I&O's: Vital Signs Temp Pulse Resp BP Pulse Ox 97.8 F 61 16 125/55 H 92 06/19/19 09:40 06/19/19 09:40 06/19/19 09:40 06/19/19 09:40 06/19/19 09:40 Oxygen Delivery Method Room Air Weight: 178 lb 12.718 oz Body Mass Index (BMI) 31.6 Intake and Output for Last 24 Hours 06/17/19 06/18/19 06/19/19 23:59 23:59 23:59 Intake Total 2650 / 2850 4700.83 / 5060.83 850 / 850 Output Total 300 / 1100 1300 / 1300 Balance 2650 / 2850 4400.83 / 3960.83 -450 / -450 Microbiology Past 72 Hours 06/17/19 15:25 Mucosa - Throat Group A Streptococcus Rapid Screen - Preliminary 06/17/19 15:10 Mucosa - Nose Respiratory Panel (PCR) - Final Human [place] 06/17/19 18:15 Urine, Clean Catch Streptococcus pneumoniae Antigen (M - Final Streptococcus pneumonia Ag 06/17/19 18:15 Urine, Clean Catch Legionella Antigen - Final 06/17/19 15:10 Mucosa - Nose Influenza Types A,B Direct FA (PORTER) - Final Laboratory Results 06/19/19 04:56: WBC 6.5, RBC 3.62 L, Hgb 10.7 L, Hct 33.3 L, MCV 92.0, MCH 29.6, MCHC 32.1, RDW Std Deviation 44.5 H, RDW Coeff of [place]sequ[place] 13.2, Plt Count 113 L, MPV 10.9, Immature Gran % (Auto) 0.600, Neut % (Auto) 75.4 H, Lymph % (Auto) 18.2 L, [place] % (Auto) 5.0, Eos % (Auto) 0.6, Baso % (Auto) 0.2, Absolute Neuts (auto) 4.9, Absolute Lymphs (auto) 1.19, Nucleated RBC % 0, Differential Comment SCANNED 06/19/19 04:56: Sodium 141, Potassium 3.8, Chloride 111 H, Carbon Dioxide 25.0, Anion Gap 5, BUN 11, Creatinine 0.65, Estim Creat Clear Calc 90.41, Est GFR (MDRD) Af Amer 126, Est GFR (MDRD) Non-Af 104, BUN/Creatinine Ratio 16.8, Glucose 107 H, Calcium 8.0 L Disposition: Home Minutes spent on discharge:: 28 Patient Condition:: Stable Meaningful Use Info Meaningful Use Diagnoses (Choose all that apply): None applicable Inpatient E&M: 65069 Disch Hosp
== END 2019-06-19 12:34 | disposition home or self-care (01) | DRG 871 ==
LOC: ED 17:34 → MS3 18:32
PROVIDERS: Family Medicine; Internal Medicine; Nurse Practitioner Family; Admitting Provider Internal Medicine; Emergency Provider Emergency Medicine; PCP Family Medicine; Visit Provider Hospitalist
DX: A41.9 Sepsis, unspecified organism (principal); J13 Pneumonia due to Streptococcus pneumoniae; J12.3 Human metapneumovirus pneumonia; E03.9 Hypothyroidism, unspecified; R65.20 Severe sepsis without septic shock; D69.6 Thrombocytopenia, unspecified; Z87.891 Personal history of nicotine dependence
CPT/HCPCS: 36415; 71046; 80048; 80053; 83605; 85025; 87040; 87449; 87633; 87804; 87880; 97802; 99285; J7030; J7040; A4216; J2405

== ENCOUNTER → 2021-09-26 | Outpatient (CLI) | payer BC, SELFPAY ==
--- NOTE | 2021-09-26 08:11 | RAD_ITS ---
INDICATION: PRE OP EXAMINATION/TECHNIQUE: X-RAY - XR Chest 2 Views COMPARISON: Chest radiograph 06/17/2019 FINDINGS: Support devices: None. No focal consolidations, effusions, or sizable pneumothorax. Cardiomediastinal silhouette is within normal limits. No acute findings in the bones or soft tissues. RAD/Chest PA and Lateral IMPRESSION: No radiographic evidence of acute cardiopulmonary disease. Electronically Signed: Ever Levine, at 9:35 EDT ,
--- NOTE | 2021-09-26 08:11 | EKG12_ITS ---
Test Reason : PRE-OP Blood Pressure : / mmHG Vent. Rate : 078 BPM Atrial Rate : 078 BPM P-R Int : 130 ms QRS Dur : 082 ms QT Int : 368 ms P-R-T Axes : 042 045 024 degrees QTc Int : 419 ms Normal sinus rhythm Normal ECG Confirmed by TAMERA HICKMAN, RACH ([id number]), business editor LYNNE TRINIDAD ([id number]) on 09/26/2021 11:25:18 AM Referred By: KIN BELL Confirmed By:RACH PHILIP MD
[2021-09-26 08:16] LABS: Absolute Lymphocyte Count 1.04 X10^3/uL (0.83-4.51); Absolute Neutrophil Count 2.6 X10^3/uL (2.0-7.7); Basophil# 0.02 X10^3/uL; Basophil% 0.5 % (0-1); Eosinophil# 0.08 X10^3/uL; Hematocrit 39.7 % (37-47); Hemoglobin 12.7 g/dL (12.0-15.0); Lymphocyte # 1.04 X10^3/ul (0.83-4.51); Lymphocyte % 25.6 % (19-41); Mean Corpuscular Hgb 27.2 pg (27.0-32.0); Mean Platelet Vol. 11.2 fl (6.2-12.0); Monocyte# 0.35 X10^3/uL; Monocyte% 8.6 % (0-10); NRBC Flagged by Analyzer 0 % (0-5); Neutrophil # 2.56 X10^3/uL (2.7-7.7); Neutrophil % 62.8 % (47-70); Platelet Count 162 K/mm3 (150-450); RBC Distribution Width CV 15.3 % (11.6-14.6); RBC Distribution Width SD 47.4 fl (35.1-43.9); Red Blood Count 4.67 M/mm3 (4.2-5.4); White Blood Count 4.1 K/mm3 (4.4-11.0)
[2021-09-26 08:47] LABS: Hemoglobin A1c 4.8 % (3.8-5.6)
[2021-09-26 08:53] LABS: Albumin, Serum 3.4 g/dL (3.2-5.0); Anion Gap 3 (5-15); BUN 10 mg/dL (7-18); BUN/Creat Ratio 13.3 RATIO (10-20); Chloride 111 mmol/L (98-107); Creatinine, Serum 0.75 mg/dL (0.55-1.02); EST Glomerular Filtration Rate 87 mL/min (>60); Est Glom Filt Rate - Afr Amer 105 mL/min (>60); Glucose 89 mg/dL (74-106); Sodium Level 139 mmol/L (136-145)
== END | disposition home or self-care (01) ==
PROVIDERS: PCP Family Medicine; Visit Provider Physician Assistant Surgical
DX: Z01.811 Encounter for preprocedural respiratory examination (principal); Z01.818 Encounter for other preprocedural examination; Z11.59 Encounter for screening for other viral diseases
CPT/HCPCS: 36415; 71046; 80048; 82040; 83036; 85025; 93005

== ENCOUNTER → 2021-10-02 | Outpatient (CLI) | payer BC, SELFPAY ==
--- NOTE | 2021-10-02 08:00 | HIP_PTH ---
PATIENT: KATARINA GRAMAJO LOC: [facility] U#:[id number] AGE/SX: 45/F ROOM: RE10/02/[address]: Dr. Isak Nick MD : [id number] BED: DIS: 10/02/2021 SPEC #: [id number] RECD: 10/02/21 15:10 STATUS: ELI ANJU #: [id number] DANIEL: 10/02/21 08:[address]: Isak Nick DEPT: SURGICAL PATHOLOGY RECD BY: Alfonso Gill ENTERED: 10/03/21 09:08 SP TYPE: TOTAL HIP OTHR DR: Dr. Anthony Ragland MD [facility] Tissues: Hip, NOS Procedures: Decalcification bone/plaque Surgery Specimen Level IV HEADER OPERATION: Left total hip arthroplasty PRE-OP DIAGNOSIS: Grade 4 osteoarthritis left hip TISSUE SUBMITTED: Left femur head MICROSCOPIC DIAGNOSIS Bone and tissue of left hip, total hip resection: Consistent with degenerative joint disease. AM:harleen 10/13/2021 MICROSCOPIC DESCRIPTION Slides are reviewed. GROSS DESCRIPTION Received is one container labeled with the patient's name and designated left femoral head. The specimen consists of a price femoral head measuring 4.8 x 4.8 x 3.5 cm. The articular surface displays focal geographic cartilage pitting. No bony erosion is identified. There is focal minimal osteophyte formation. Also present in the specimen container are multiple irregular fragments of bone fragments and pink-yellow soft tissue measuring in aggregate 8 x 7 x 2 cm. Epic [employer]st sections are submitted in five cassettes as follows: 1-4 - bone after decalcification, 5 ? soft tissue. / AM:harleen 10/03/2021 TC:5 CPT: 83696, 91711
== END | disposition home or self-care (01) ==
LOC: LABSPEC 15:12
PROVIDERS: PCP Family Medicine; Referring Provider Specialist; Visit Provider Specialist
DX: M16.12 Unilateral primary osteoarthritis, left hip (principal)
CPT/HCPCS: 88305; 88311